=== PATIENT | female | born 1995 | race Caucasian/White ===

== ENCOUNTER 2020-04-06 21:43 | Emergency (ER) | payer BC, SELFPAY ==
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
[2020-04-06 21:40] VITALS: BP 158/105; PULSE 98; RESP 16; TEMP 36.7; O2SAT 97
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
[2020-04-06] MEDS: IBUPROFEN 600 MG TABLET PO (22:32)
[2020-04-06 23:02] VITALS: BP 154/98; PULSE 81; RESP 16; TEMP 36.8; O2SAT 99
== END 2020-04-06 23:04 | disposition home or self-care (01) ==
PROVIDERS: Emergency Provider Emergency Medicine
DX: S09.90XA Unspecified injury of head, initial encounter (principal); S16.1XXA Strain of muscle, fascia and tendon at neck level, initial encounter; V49.40XA Driver injured in collision with unspecified motor vehicles in traffic accident, initial encounter
CPT/HCPCS: 70450; 72125; 99284; A9270